=== PATIENT | female | born 1955 | race African-American/Black ===

== ENCOUNTER 2018-09-06 18:46 | Inpatient (IN) | payer MEDICAID, OTHER ==
[~2018-09-06] VITALS: Ht 170.2 cm; Wt 151.5 kg
[~2018-09-06 18:46] MED LIST: ASPIR 8181 MG ORAL; ATENOLOL100 MG ORAL; BENAZEPRIL HCL40 MG ORAL; HYDROCHLOROTH12.5 M2 ORAL; NAPROSYN250 M1 ORAL; NORCO 5-325 TA1 EACH PO
[2018-09-06] MEDS ORDERED: METFORMIN HCL1000 M1 ORAL (19:09)
[2018-09-06] MEDS ORDERED: LANTUS SOL100 UNIT/1 SUBQ (19:09)
[2018-09-06 19:15] VITALS: BP 153/82
[2018-09-06 20:23] LABS: BASOPHILS % (AUTO) 1.4 % (0.0-2.0); EOSINOPHILS % (AUTO) 1.5 % (0.0-3.0); HEMATOCRIT 40.2 % (37.0-47.0); LYMPHOCYTES % (AUTO) 21.7 % (20.0-45.0); MEAN CORPUSCULAR VOLUME 82 FL (80-99); NEUTROPHILS % (AUTO) 68.5 % (45.0-75.0); PLATELET COUNT 273 K/UL (150-450); RED BLOOD COUNT 4.91 M/UL (4.20-5.40); RED CELL DISTRIBUTION WIDTH 12.6 % (11.6-14.8); WHITE BLOOD COUNT 10.1 K/UL (4.8-10.8)
[2018-09-06 20:32] LABS: APPEARANCE,URINE CLEAR; BILIRUBIN, URINE NEGATIVE (NEGATIVE); COLOR,URINE PALE YELLOW; GLUCOSE, URINE (UA) 4+ (NEGATIVE); KETONES,URINE 1+ (NEGATIVE); LEUKOCYTE ESTERASE ,URINE NEGATIVE (NEGATIVE); NITRITE,URINE NEGATIVE (NEGATIVE); PH,URINE 5 (4.5-8.0); PROTEIN,URINE 3+ (NEGATIVE); UROBILINOGEN,URINE NORMAL MG/DL (0.0-1.0)
[2018-09-06 20:33] LABS: ANION GAP 9 mmol/L (5-15); BLOOD UREA NITROGEN 18 mg/dL (7-18); CALCIUM 9.8 MG/DL (8.5-10.1); CARBON DIOXIDE 26 MMOL/L (21-32); CHLORIDE 99 MMOL/L (98-107); POTASSIUM 4.6 MMOL/L (3.5-5.1); SODIUM 134 MMOL/L (136-145)
[2018-09-06 20:38] LABS: ALANINE AMINOTRANSFERASE 30 U/L (12-78); ALBUMIN 2.9 G/DL (3.4-5.0); ALBUMIN/GLOBULIN RATIO 0.5 (1.0-2.7); ALKALINE PHOSPHATASE 144 U/L (46-116); ASPARTATE AMINO TRANSFERASE 13 U/L (15-37); BILIRUBIN,TOTAL 0.2 MG/DL (0.2-1.0)
--- NOTE | 2018-09-06 20:49 | Emergency Room Report ---
History of Present Illness General Chief Complaint: General Complaint Source: Patient, Medical Record Present Illness HPI This patient states that she thinks her blood sugar is elevated. She states she has been urinating a lot. She also has pain in her groin bilaterally. She denies dysuria or hematuria. She denies fever or chills. She denies abdominal pain. She denies chest pain or shortness of breath. She denies cough or congestion. She has no other complaints. Allergies: Coded Allergies: PENICILLIN G (Verified Allergy, Unknown, 03/12/10) SULFA (SULFONAMIDE ANTIBIOTICS) (Verified Allergy, Unknown, 03/12/10) SULFAMETHOXAZOLE (Verified Allergy, Unknown, 09/06/18) TRIMETHOPRIM (Verified Allergy, Unknown, 09/06/18) Patient History Past Medical History: see triage record, DM, HTN, asthma Social History: Denies: smoking, alcohol use, drug use Last Menstrual Period: menopause Reviewed Nursing Documentation: PMH: Agreed; PSxH: Agreed Nursing Documentation-PMH Past Medical History: No History, Except For Hx Cardiac Problems: No Hx Hypertension: Yes Hx Pacemaker: No Hx Asthma: Yes - ALBUTEROL INHALER Hx COPD: No Hx Diabetes: Yes Hx Cancer: No Hx Gastrointestinal Problems: No Hx Dialysis: No Hx Neurological Problems: Yes - CHRONIC BACK NECK KNEE HAND PAIN Hx Cerebrovascular Accident: No Hx Seizures: No Review of Systems All Other Systems: negative except mentioned in HPI Physical Exam Vital Signs Date Time Temp Pulse Resp B/P (MAP) Pulse Ox O2 Delivery O2 Flow Rate FiO2 09/06/18 18:59 97.9 81 18 163/87 95 Room Air Sp02 EP Interpretation: reviewed, normal General Appearance: no apparent distress, alert, GCS 15, non-toxic, obese Head: normocephalic, atraumatic Eyes: bilateral eye normal inspection, bilateral eye PERRL ENT: hearing grossly normal, normal pharynx, no angioedema, normal voice Neck: full range of motion, supple/symm/no masses Respiratory: chest non-tender, lungs clear, normal breath sounds, no respiratory distress, no retraction, no accessory muscle use, speaking full sentences Cardiovascular #1: regular rate, rhythm, no edema Gastrointestinal: normal bowel sounds, non tender, soft, non-distended, no guarding, no rebound Rectal: deferred Musculoskeletal: back normal, gait/station normal, normal range of motion, non- tender Neurologic: alert, oriented x3, responsive, motor strength/tone normal, sensory intact, speech normal Psychiatric: judgement/insight normal, memory normal, mood/affect normal, no suicidal/homicidal ideation Skin: normal color, no rash, warm/dry, well hydrated Medical Decision Making Diagnostic Impression: Primary Impression: Uncontrolled diabetes mellitus ER Course This patient has uncontrolled diabetes. Further discussion and she does not have any of her medications to include her metformin or insulin. She states she does have an apartment but hasn't been staying there because of safety issues. She has not been taking any of her medications. The patient needs social work instructor evaluation, control of her blood sugar and refill of her diabetes medications. At this point, the patient has no or safe to go and cannot refrigerate her insulin. She is admitted for uncontrolled diabetes and social work evaluation. Laboratory Tests Test 09/06/18 20:00 09/06/18 20:15 White Blood Count 10.1 K/UL (4.8-10.8) Red Blood Count 4.91 M/UL (4.20-5.40) Hemoglobin 13.0 G/DL (12.0-16.0) Hematocrit 40.2 % (37.0-47.0) Mean Corpuscular Volume 82 FL (80-99) Mean Corpuscular Hemoglobin 26.5 PG (27.0-31.0) L Mean Corpuscular Hemoglobin Concent 32.3 G/DL (32.0-36.0) Red Cell Distribution Width 12.6 % (11.6-14.8) Platelet Count 273 K/UL (150-450) Mean Platelet Volume 9.0 FL (6.5-10.1) Neutrophils (%) (Auto) 68.5 % (45.0-75.0) Lymphocytes (%) (Auto) 21.7 % (20.0-45.0) Monocytes (%) (Auto) 7.0 % (1.0-10.0) Eosinophils (%) (Auto) 1.5 % (0.0-3.0) Basophils (%) (Auto) 1.4 % (0.0-2.0) Sodium Level 134 MMOL/L (136-145) L Potassium Level 4.6 MMOL/L (3.5-5.1) Chloride Level 99 MMOL/L (98-107) Carbon Dioxide Level 26 MMOL/L (21-32) Anion Gap 9 mmol/L (5-15) Blood Urea Nitrogen 18 mg/dL (7-18) Creatinine 1.0 MG/DL (0.55-1.30) Estimate Glomerular Filtration Rate > 60 mL/min (>60) Glucose Level 400 MG/DL (74-106) H Calcium Level 9.8 MG/DL (8.5-10.1) Magnesium Level 2.0 MG/DL (1.8-2.4) Total Bilirubin 0.2 MG/DL (0.2-1.0) Aspartate Amino Transferase (AST) 13 U/L (15-37) L Alanine Aminotransferase (ALT) 30 U/L (12-78) Alkaline Phosphatase 144 U/L (46-116) H Total Protein 8.4 G/DL (6.4-8.2) H Albumin 2.9 G/DL (3.4-5.0) L Globulin 5.5 g/dL Albumin/Globulin Ratio 0.5 (1.0-2.7) L Acetone Level Negative (NEGATIVE) Urine Color Pale yellow Urine Appearance Clear Urine pH 5 (4.5-8.0) Urine Specific [place] 1.020 (1.005-1.035) Urine Protein 3+ (NEGATIVE) H Urine Glucose (UA) 4+ (NEGATIVE) H Urine Ketones 1+ (NEGATIVE) H Urine Blood 2+ (NEGATIVE) H Urine Nitrite Negative (NEGATIVE) Urine Bilirubin Negative (NEGATIVE) Urine Urobilinogen Normal MG/DL (0.0-1.0) Urine Leukocyte Esterase Negative (NEGATIVE) Urine RBC Pending Urine WBC Pending Urine Squamous Epithelial Cells Pending Urine Bacteria Pending EKG Diagnostic Results Rate: normal Rhythm: NSR ST Segments: no acute changes Rhythm Strip Diag. Results EP Interpretation: yes Rate: 70's Rhythm: NSR, no PVC's, no ectopy Last Vital Signs Date Time Temp Pulse Resp B/P (MAP) Pulse Ox O2 Delivery O2 Flow Rate FiO2 09/06/18 18:59 97.9 81 18 163/87 95 Room Air Status: improved Disposition: ADMITTED INPATIENT Condition: Serious Referrals: MABLE PRIETO,REFERRING (PCP) Alessandra Augustin DO Sep 06, 2018 20:49
[2018-09-07] VITALS: BP 140/110
[2018-09-07] MEDS: NovoLOG Insulin Flexpen SUBQ SCH ×3 (07:27→16:44)
[2018-09-07 08:00] VITALS: BP 171/78
[2018-09-07] MEDS ORDERED: Aspirin Baby 81mg ORAL SCH (09:00)
[2018-09-07] MEDS ORDERED: metFORMIN 500mg tab ORAL SCH (09:00)
[2018-09-07 11:52] VITALS: BP 153/74
--- NOTE | 2018-09-07 16:15 | History and Physical Report ---
DATE OF ADMISSION: 09/06/2018 REASON FOR ADMISSION: Diabetes out of control. HISTORY OF PRESENT ILLNESS: The patient is a 63-year-old female who is cared for by herself at home. The patient presents with poorly-controlled diabetes. The patient also with increased urination. The patient denies any dysuria. No fevers or chills. PAST MEDICAL HISTORY: Reviewed, notable for diabetes, hypertension, asthma. MEDICATIONS: Reviewed. ALLERGIES: Reviewed. SOCIAL HISTORY: Currently nonsmoker, nondrinker. REVIEW OF SYSTEMS: Notable for chronic back pain, knee pain, diabetes, hypertension. PHYSICAL EXAMINATION: GENERAL: A well-developed female, comfortable at present. VITAL SIGNS: Blood pressure elevated 140/110, pulse 84, saturations 96%. HEENT: Otherwise negative. NECK: Supple. LUNGS: Clear and symmetric. CARDIAC: Normal S1 and S2. Regular rate and rhythm. ABDOMEN: Soft, nontender, and nondistended. EXTREMITIES: No edema. NEUROLOGIC: Grossly nonfocal. IMPRESSION: 1. Diabetes with poor control. 2. Protein-calorie malnutrition. 3. Hypertension. RECOMMENDATIONS: 1. Supportive care. 2. Resume home medications. 3. IV hydration. 4. We will likely need to optimize diabetic management on discharge. We will prescribe metformin 1000 b.i.d. and Januvia 100 daily. 5. The patient will need close outpatient followup for further management and intervention. The patient has been made aware that if symptoms worsen or sugars increase that she should return back to the emergency room. Fili Belle M.D. DR: Keith JOB#: [id number] CC:
[2018-09-07 16:30] VITALS: BP 154/85
--- NOTE | 2018-09-08 07:54 | Discharge Summary ---
Discharge Summary Discharge Summary _ DATE OF ADMISSION: 09/06/2018 DATE OF DISCHARGE: 09/07/2018 BRIEF HOSPITAL COURSE: Patient is a 63-year-old female, who is cared for by herself at home. The patient presented to ED with poorly controlled diabetes and complained of increased urination. She denied any dysuria. No fever or chills. No chest pain or shortness of breath. She has medical history notable for diabetes, hypertension and asthma. On evaluation at ED, blood pressure was elevated to 163/87, pulse rate of 81, 95 % oxygen saturation on room air. Blood work did not show any leukocytoses, hemoglobin and hematocrit were stable. Glucose was elevated to 400. Anion gap of 9, acetone level negative. She has not been taking her medications. She was then admitted for uncontrolled diabetes mellitus. She was admitted to medical floor. She was given supportive care. She was started on IV hydration. Blood glucose was monitored. She was given insulin sliding scale and metformin 1000 mg daily. She was given atenolol and benazepril for blood pressure. Patient will need to optimize diabetes management on discharge. Patient will need close outpatient follow-up for further management and intervention. She was discharged home to follow up with PCP. FINAL DIAGNOSES: Diabetes mellitus, out of control Protein calorie malnutrition Hypertension DISPOSITION: Patient was discharged home. DISCHARGE MEDICATIONS: Refer to Discharge Medication List. DISCHARGE INSTRUCTIONS: Follow up with PCP in a week. I have been assigned to dictate discharge summary on this account, and I was not involved in the patient's management. Lissy Tee NP Sep 08, 2018 07:54
--- NOTE | 2018-09-09 15:20 | Cardiology Report ---
APPROVED REPORT EKG Measurement Heart [id number] Normal sinus rhythm Cannot rule out Anterior infarct, age undetermined Abnormal ECG
== END 2018-09-07 18:30 | disposition home or self-care (01) | DRG 420 ==
LOC: EMR 19:36 → 3E 21:28 → EDBEDREQ 21:46
DX: E11.65 Type 2 diabetes mellitus with hyperglycemia (principal); E46 Unspecified protein-calorie malnutrition; I10 Essential (primary) hypertension; Z68.43 Body mass index [BMI] 50.0-59.9, adult; J45.909 Unspecified asthma, uncomplicated; Z88.0 Allergy status to penicillin; Z88.2 Allergy status to sulfonamides
CPT/HCPCS: 36415; 80053; 81003; 82009; 83735; 85025; 93005; 96360; 99285; J1815